=== PATIENT | female | born 1950 | race Caucasian/White ===

== ENCOUNTER → 2017-11-11 | Outpatient (CLI) | payer MEDICARE ==
--- NOTE | 2017-11-11 11:18 | US ---
EXAMINATION TYPE: US thyroid st tissue head/neck DATE OF EXAM: 11/11/2017 COMPARISON: 2016 CLINICAL HISTORY: E21.0 PRIMARY HYPERPARATHYROIDISM. GLAND SIZE: Right Lobe:5.3 x 1.7 x 1.8 cm Overall Parenchyma: heterogenous Left Lobe: 5.4 x 1.8 x 1.9 cm Overall Parenchyma: heterogeneous Isthmus Thickness: 0.5 cm NODULES RIGHT: # of nodules measured on right: 0 LEFT: # of nodules measured on left: 1 1. 1.1 X 1.1 x 1.6 cm echogenic solid nodule at the upper pole with well-defined margins; . This n odule is round and shows intranodular vascularity. Prior size: no ISTHMUS: # of nodules measured in the isthmus: 0 Bilateral neck scanned, no evidence of lymphadenopathy. IMPRESSION: 1. Stable thyroid nodularity and heterogeneity is nonspecific.
[2017-11-11 11:40] LABS: ALT 38 U/L (9-52); AST 19 U/L (14-36); Albumin 4.3 g/dL (3.5-5.0); Alkaline Phosphatase 89 U/L (38-126); Anion Gap 6 mmol/L; Blood Urea Nitrogen 19 mg/dL (7-17); Calcium 10.6 mg/dL (8.4-10.2); Carbon Dioxide 29 mmol/L (22-30); Chloride 108 mmol/L (98-107); Glucose 105 mg/dL (74-99); Potassium 4.8 mmol/L (3.5-5.1); Sodium 143 mmol/L (137-145); Total Bilirubin 0.6 mg/dL (0.2-1.3)
[2017-11-11 11:56] LABS: T4, Free (Free Thyroxine) 1.91 ng/dL (0.78-2.19)
[2017-11-11 16:28] LABS: Vitamin D 25 Hydroxy 48.7 ng/mL (30.0-100.0)
[2017-11-11 16:55] LABS: Parathyroid Hormone Intact 97.3 pg/mL (14.0-72.0)
== END | disposition home or self-care (01) ==
LOC: RADUSWWP 10:16
PROVIDERS: ATTEND Internal Medicine Endocrinology, Diabetes & Metabolism
DX: E04.1 Nontoxic single thyroid nodule (principal)
CPT/HCPCS: 76536; 80053; 82306; 83970; 84439; 84443

== ENCOUNTER → 2017-11-11 | Outpatient (CLI) | payer MEDICARE ==
--- NOTE | 2017-11-11 13:17 | BD ---
EXAMINATION TYPE: Axial Bone Density DATE OF EXAM: 11/11/2017 COMPARISON: 05/29/2015 CLINICAL HISTORY: Height: 64 IN Weight: 188 LBS FRAX RISK QUESTIONS: Secondary Osteoporosis: 2. Hyperthyroidism: YES RISK FACTORS HISTORY OF: Active: YES Diet low in dairy products/other sources of calcium: YES Postmenopausal woman: AGE 54 Hyperparathyroidism: YES Adrenal Insufficiency: MEDICATIONS: Thyroid Medications: YES Which medication: Levothyroxine How Lon + YEARS Additional Medications: VIT D, LEVOTHYROXINE,PRAVASTATIN, AMLODIPINE, NADALOL, EYE DROPS EXAM MEASUREMENTS: Bone mineral densitometry was performed using the [employer]ur[employer] System. Bone mineral density as measured about the Lumbar spine is: ----- L1-L4(G/cm2): 1.167 T Score Values are as follows: ----- L2: -0.5 ----- L3: -0.5 ----- L4: 0.3 ----- L1-L4: -0.1 Bone mineral density has: Increased 3.8% since study of: 05/29/2015 Bone mineral density about the R hip (g/cm2): 1.026 Bone mineral density about the L hip (g/cm2): 1.019 T Score values are as follows: -----R Neck: -0.1 -----L Neck: -0.1 -----R Total: -0.3 -----L Total: -0.1 Bone mineral density has: Increased 0.5% since study of: 05/29/2015 IMPRESSION: No evidence for osteoporosis or osteopenia. NOTE: T-SCORE=SD OF THE YOUNG ADULT MEAN.
== END | disposition home or self-care (01) ==
LOC: RADBDWWP 10:11
PROVIDERS: ATTEND Internal Medicine Endocrinology, Diabetes & Metabolism
DX: E21.0 Primary hyperparathyroidism (principal); E04.1 Nontoxic single thyroid nodule; E03.8 Other specified hypothyroidism
CPT/HCPCS: 77080

== ENCOUNTER → 2019-09-02 | Outpatient (CLI) | payer MEDICARE ==
--- NOTE | 2019-09-02 08:45 | US ---
EXAMINATION TYPE: US thyroid st tissue head/neck DATE OF EXAM: 09/02/2019 COMPARISON: US 2018 CLINICAL HISTORY: E04.2 NONTOXIC MULTINODULAR GOITER. Goiter, patient on thyroid meds. GLAND SIZE: Right Lobe: 6.0 x 1.8 x 1.9 cm Overall Parenchyma: heterogenous Left Lobe: 5.6 x 2.4 x 2.4 cm Overall Parenchyma: heterogeneous Isthmus Thickness: 0.5 cm NODULES RIGHT: # of nodules measured on right: 0 LEFT: # of nodules measured on left: diffusely heterogeneous with 2 possible nodules seen 1. 1.7 X 1.1 x 1.1 cm hypoechoic solid nodule at the upper pole with well-defined margins. This nod ule is wider than tall and shows intranodular vascularity. Prior size: 1.6 x 1.1 x 1.1 cm 2. 2.6 X 1.9 x 1.4 cm hypoechoic solid nodule at the lower pole with well-defined margins. This nodu le is taller than wide and shows intranodular vascularity. Prior size: no previous ISTHMUS: # of nodules measured in the isthmus: 0 Bilateral neck scanned, no evidence of lymphadenopathy. Diffusely heterogeneous enlarged gland with 2 discrete left lobe nodules. IMPRESSION: Diffusely heterogenous nonenlarged thyroid gland compatible with a multinodular goiter ho wever there are 2 dominant left thyroid nodules measuring 1.7 and 2.6 cm for which fine-needle aspira tion is recommended.
[2019-09-02 09:33] LABS: Albumin 4.4 g/dL (3.5-5.0); Calcium 9.5 mg/dL (8.4-10.2); Potassium 4.4 mmol/L (3.5-5.1); Total Bilirubin 0.5 mg/dL (0.2-1.3); Total Protein 7.1 g/dL (6.3-8.2)
== END | disposition home or self-care (01) ==
LOC: RADUSWWP 07:36
PROVIDERS: ATTEND Internal Medicine Endocrinology, Diabetes & Metabolism
DX: E04.2 Nontoxic multinodular goiter (principal); E03.8 Other specified hypothyroidism; Z86.39 Personal history of other endocrine, nutritional and metabolic disease
CPT/HCPCS: 36415; 76536; 80053; 82306; 83970; 84443

== ENCOUNTER → 2020-09-01 | Outpatient (CLI) | payer MEDICARE ==
[2020-09-01 14:55] LABS: Albumin 4.5 g/dL (3.5-5.0); Calcium 9.4 mg/dL (8.4-10.2); Potassium 4.4 mmol/L (3.5-5.1); Total Bilirubin 0.5 mg/dL (0.2-1.3)
--- NOTE | 2020-09-01 15:53 | US ---
EXAMINATION TYPE: US thyroid st tissue head/neck DATE OF EXAM: 09/01/2020 COMPARISON: NONE CLINICAL HISTORY: E04.2 Nontoxic multinodular goiter. Multiple goiter GLAND SIZE: Right Lobe: 6.2 x 1.9 x2.3 cm Overall Parenchyma: heterogenous Left Lobe: 5.8 x 2.6 x 2.3 cm Overall Parenchyma: heterogeneous Isthmus Thickness: .5 cm NODULES RIGHT: # of nodules measured on right: 0 LEFT: # of nodules measured on left: 2 1. 2.8 X 2.0 x 2.4 cm, lower solid or almost completely solid, hypoechoic nodule, which is wider th an tall, with smooth margins, without echogenic foci. Prior size: 2.6 x 1.9 x 1.4 cm 2. 1.4 X 1.3 x 1.1 cm, upper solid or almost completely solid, hypoechoic nodule, which is wider th an tall, with smooth margins, without echogenic foci. Prior size: 1.7 x 1.1 x 1.1 cm ISTHMUS: # of nodules measured in the isthmus: 0 Bilateral neck scanned, no evidence of lymphadenopathy. IMPRESSION: Diffusely heterogeneous, enlarged thyroid gland suggestive of multinodular goiter. At least 2 left th yroid nodules are hypoechoic suggestive of TI-RADS 4 nodules. The largest nodule is 2.8 cm, larger an d would be amenable to ultrasound-guided fine-needle aspiration per criteria. 2017 ACR TI-RADS LEVEL: 4 *Highest TI-RADS level nodule reported
== END | disposition home or self-care (01) ==
LOC: RADUSWWP 12:54
PROVIDERS: ATTEND Internal Medicine Endocrinology, Diabetes & Metabolism
DX: E04.2 Nontoxic multinodular goiter (principal)
CPT/HCPCS: 36415; 76536; 80053; 82306; 83036; 83970; 84443

== ENCOUNTER → 2023-06-23 | Outpatient (CLI) | payer MEDICARE ==
--- NOTE | 2023-06-23 16:02 | US ---
EXAMINATION TYPE: US axilla LT DATE OF EXAM: 06/23/2023 COMPARISON: NONE CLINICAL INDICATION: Female, 72 years old with history of R22.2 SWELLING,MASS AND LUMP; Hard palpable left axilla for 1-2 months. Last mammogram 05/24. [facility] TECHNIQUE: FINDINGS: Scanned area of concern, left axilla. Complex hypoechoic lesion = 5.8 x 5.2 x 4.9 cm. Inte rnal vascularity is evident. Metastatic lymph node should be considered. IMPRESSION: Large heterogenous mass left axilla. Consider CT thorax with contrast for additional ana luation.
== END | disposition home or self-care (01) ==
LOC: RADUSWWP 10:09
PROVIDERS: ATTEND Family Medicine
DX: R22.2 Localized swelling, mass and lump, trunk (principal)

== ENCOUNTER → 2023-06-27 | Outpatient (CLI) | payer MEDICARE ==
[2023-06-27 12:56] LABS: African American GFR (CKD) 72 (>60 ml/min/1.73 sqM); Blood Urea Nitrogen 20 mg/dL (7-17); Non-African American GFR(CKD) 62 (>60 ml/min/1.73 sqM)
--- NOTE | 2023-06-27 13:49 | CT ---
EXAMINATION TYPE: CT chest w con CT DLP: 328.3 mGycm, Automated exposure control for dose reduction was used. DATE OF EXAM: 06/27/2023 1:10 PM COMPARISON: Chest radiograph from same day. Multiple CTs of the chest with most recent on . CLINICAL INDICATION:Female, 72 years old with history of R22.2 SWELLING MASS LUMP; PHH, swelling to l eft axilla TECHNIQUE: Multiple axial images were obtained through the chest. Sagittal and coronal reformats were created for review. Contrast used:100 mL of Isovue 300 with IV Contrast (None if empty) Oral contrast used: (None if empty) FINDINGS: LUNGS/ PLEURA: The lung parenchyma appears unremarkable. AIRWAY: Patent and unremarkable. HEART: Size within normal limits. MEDIASTINUM: No gross evidence of adenopathy. VASCULATURE: No aortic aneurysm. MUSCULOSKELETAL: 5 cm mass is identified in the left upper chest centered within the left pectoralis major muscle. A retropectoral lymph node could also be the site of origin. The mass appears to parti ally encase the left axillary artery. Consider bilateral diagnostic mammography, left breast, whole b reast ultrasound, and breast MRI. Tissue sampling. Ultrasound-guided biopsy could help guide further workup SOFT TISSUES/LYMPH NODES: Unremarkable. LOWER NECK: No significant findings. UPPER ABDOMEN: No significant findings. IMPRESSION: Five cm mass is identified in the left upper chest centered within the left pectoralis major muscle. A retropectoral lymph node could also be the site of origin. Metastatic lymph node, sarcoma, or bettie osarcoma are probably within the differential diagnostic considerations. The mass appears to partia lly encase the left axillary artery. Consider bilateral diagnostic mammography, left breast, whole br east ultrasound, and breast MRI. Tissue sampling. Ultrasound-guided biopsy could help guide guide fur ther workup.
== END | disposition home or self-care (01) ==
LOC: RADCTMAIN 11:38
PROVIDERS: ATTEND Family Medicine
DX: R22.2 Localized swelling, mass and lump, trunk (principal)
CPT/HCPCS: 82565; 84520; 71260; 36415; Q9967